=== PATIENT | female | born 1935 | race Caucasian/White ===

== ENCOUNTER → 2023-08-03 | Outpatient (CLI) | payer MEDICARE, BC, SELFPAY ==
[2023-08-03 11:42] LABS: BNP,B-Type NATRIURETIC PEPTIDE 866.3 pg/mL (0-100)
[2023-08-03 11:48] LABS: Anion Gap 4 (5-15); BUN 28 mg/dL (7-18); BUN/Creat Ratio 26.7 RATIO (10-20); Calcium,Total 9.4 mg/dL (8.5-10.1); Chloride 100 mmol/L (98-107); Creatinine, Serum 1.05 mg/dL (0.55-1.02); EST Glomerular Filtration Rate 53 mL/min (>60); Est Glom Filt Rate - Afr Amer 64 mL/min (>60); Glucose 103 mg/dL (74-106); Potassium 3.8 mmol/L (3.5-5.1); Sodium Level 133 mmol/L (136-145)
== END | disposition home or self-care (01) ==
LOC: LAB 10:35
PROVIDERS: PCP Preventive Medicine Occupational Medicine; Referring Provider Internal Medicine Cardiovascular Disease; Visit Provider Internal Medicine Cardiovascular Disease
DX: R06.09 Other forms of dyspnea (principal); N18.30 Chronic kidney disease, stage 3 unspecified
CPT/HCPCS: 36415; 80048; 83880

== ENCOUNTER → 2023-08-17 | Outpatient (CLI) | payer MEDICARE, BC, SELFPAY ==
[2023-08-17 09:37] LABS: Anion Gap 5 (5-15); BUN 27 mg/dL (7-18); BUN/Creat Ratio 25.7 RATIO (10-20); Calcium,Total 9.2 mg/dL (8.5-10.1); Chloride 101 mmol/L (98-107); Creatinine, Serum 1.05 mg/dL (0.55-1.02); EST Glomerular Filtration Rate 53 mL/min (>60); Est Glom Filt Rate - Afr Amer 64 mL/min (>60); Glucose 102 mg/dL (74-106); Sodium Level 133 mmol/L (136-145)
== END | disposition home or self-care (01) ==
PROVIDERS: PCP Preventive Medicine Occupational Medicine; Referring Provider Internal Medicine Cardiovascular Disease; Visit Provider Internal Medicine Cardiovascular Disease
DX: I10 Essential (primary) hypertension (principal)
CPT/HCPCS: 36415; 80048

== ENCOUNTER → 2023-10-28 | Outpatient (CLI) | payer MEDICARE, BC, SELFPAY ==
[2023-10-28 09:37] LABS: Absolute Lymphocyte Count 1.13 X10^3/uL (0.83-4.51); Absolute Neutrophil Count 5.5 X10^3/uL (2.0-7.7); Basophil# 0.06 X10^3/uL; Basophil% 0.8 % (0-1); Eosinophil# 0.23 X10^3/uL; Eosinophils% 2.9 % (0-5); Hematocrit 35.5 % (37-47); Hemoglobin 11.6 g/dL (12.0-15.0); Lymphocyte # 1.13 X10^3/ul (0.83-4.51); Lymphocyte % 14.4 % (19-41); Mean Corp Hgb Conc 32.7 g/dL (32-36); Mean Corpuscular Hgb 29.8 pg (27.0-32.0); Mean Corpuscular Volume 91.3 fL (81-99); Mean Platelet Vol. 10.7 fl (6.2-12.0); Monocyte# 0.92 X10^3/uL; Monocyte% 11.7 % (0-10); NRBC Flagged by Analyzer 0 % (0-5); Neutrophil # 5.46 X10^3/uL (2.7-7.7); Neutrophil % 69.8 % (47-70); Platelet Count 219 K/mm3 (150-450); RBC Distribution Width SD 50.3 fl (35.1-43.9); Red Blood Count 3.89 M/mm3 (4.2-5.4); White Blood Count 7.8 K/mm3 (4.4-11.0)
[2023-10-28 10:14] LABS: AST(SGOT) 32 U/L (15-37); Alanine Aminotransfer ALT/SGPT 28 U/L (13-56); Anion Gap 5 (5-15); BUN 35 mg/dL (7-18); BUN/Creat Ratio 28.5 RATIO (10-20); Calcium,Total 9.3 mg/dL (8.5-10.1); Chloride 100 mmol/L (98-107); Cholesterol 75 mg/dL (200); Creatinine, Serum 1.23 mg/dL (0.55-1.02); EST Glomerular Filtration Rate 44 mL/min (>60); Est Glom Filt Rate - Afr Amer 53 mL/min (>60); Glucose 93 mg/dL (74-106); High Density Lipoprotein 45 mg/dL; Potassium 4.3 mmol/L (3.5-5.1); Sodium Level 133 mmol/L (136-145); Triglycerides 55 mg/dL; Very Low Density Lipoprotein 11 mg/dL (5-40)
[2023-10-28 11:01] LABS: Hepatitis B Surface Antibody Non-Reactive; Hepatitis B Surface Antigen Non-Reactive (Nonreactive); Hepatitis C Antibody Non-Reactive (Nonreactive)
[2023-10-30 21:07] LABS: Hepatitis B Core Ab Total Negative (Negative); LDL, Direct 120295 33 mg/dL (0-99); PROEL- A/G Ratio 1.1 (0.7-1.7); PROEL- Albumin 3.5 g/dL (2.9-4.4); PROEL- Alpha-1 Globulin 0.3 g/dL (0.0-0.4); PROEL- Alpha-2 Globulin 0.6 g/dL (0.4-1.0); PROEL- Gamma Globulin 1.5 g/dL (0.4-1.8); PROEL- Globulin, Total 3.3 g/dL (2.2-3.9); PROEL- TOTAL PROTEIN 6.8 g/dL (6.0-8.5); PROEL-M-Spike Not Observed g/dL (Not Observed); QNTFERON TB Mitogen Value > 10.00 IU/mL (.); QNTFERON TB Nil Value 0.05 IU/mL (.); QNTFERON TB1+ Ag Value 0.07 IU/mL (.); QNTFERON TB2+ Ag Value 0.13 IU/mL (.); QNTIFERON TB Positive Criteria Negative (Negative)
== END | disposition home or self-care (01) ==
LOC: LAB 08:18
PROVIDERS: PCP Preventive Medicine Occupational Medicine; Referring Provider Physician Assistant; Visit Provider Physician Assistant
DX: L29.8 Other pruritus (principal); E05.00 Thyrotoxicosis with diffuse goiter without thyrotoxic crisis or storm; E78.00 Pure hypercholesterolemia, unspecified; I10 Essential (primary) hypertension; Z13.0 Encounter for screening for diseases of the blood and blood-forming organs and certain disorders involving the immune mechanism; L20.89 Other atopic dermatitis; Z79.620 Long term (current) use of immunosuppressive biologic; Z79.899 Other long term (current) drug therapy
CPT/HCPCS: 36415; 80048; 80061; 83721; 84165; 84450; 84460; 85025; 86480; 86704; 86706; 86803; 87340

== ENCOUNTER → 2023-11-17 | Outpatient (CLI) | payer MEDICARE, BC, SELFPAY ==
[2023-11-17 09:26] LABS: Anion Gap 4 (5-15); BUN 25 mg/dL (7-18); BUN/Creat Ratio 23.1 RATIO (10-20); Calcium,Total 9.5 mg/dL (8.5-10.1); Chloride 101 mmol/L (98-107); Creatinine, Serum 1.08 mg/dL (0.55-1.02); EST Glomerular Filtration Rate 51 mL/min (>60); Est Glom Filt Rate - Afr Amer 62 mL/min (>60); Glucose 92 mg/dL (74-106); Potassium 4.5 mmol/L (3.5-5.1); Sodium Level 132 mmol/L (136-145)
== END | disposition home or self-care (01) ==
LOC: LAB 08:17
PROVIDERS: PCP Preventive Medicine Occupational Medicine; Visit Provider Nurse Practitioner Gerontology
DX: N18.32 Chronic kidney disease, stage 3b (principal)
CPT/HCPCS: 36415; 80048

== ENCOUNTER → 2024-05-02 | Outpatient (CLI) | payer MEDICARE, BC, SELFPAY ==
[2024-05-02 11:23] LABS: AST(SGOT) 37 U/L (15-37); Alanine Aminotransfer ALT/SGPT 31 U/L (13-56); Albumin, Serum 3.4 g/dL (3.2-5.0); Alkaline Phosphatase 136 U/L (45-117); Bilirubin, Direct 0.23 mg/dL (0.00-0.30); Cholesterol 92 mg/dL (200); Globulin 3.6 g/dL (2.2-4.2); High Density Lipoprotein 50 mg/dL; Triglycerides 67 mg/dL; Very Low Density Lipoprotein 13 mg/dL (5-40)
== END | disposition home or self-care (01) ==
PROVIDERS: PCP Preventive Medicine Occupational Medicine; Referring Provider Physician Assistant Medical; Visit Provider Physician Assistant Medical
DX: E78.5 Hyperlipidemia, unspecified (principal)
CPT/HCPCS: 36415; 80061; 80076

== ENCOUNTER → 2024-09-06 | Outpatient (CLI) | payer MEDICARE, BC, SELFPAY ==
[2024-09-06 11:44] LABS: AST(SGOT) 33 U/L (<=31); Alanine Aminotransfer ALT/SGPT 16 U/L (<=34); Albumin, Serum 4.1 g/dL (3.4-4.8); Alkaline Phosphatase 60 U/L (35-104); Globulin 2.6 g/dL (2.2-4.2); Lipase 37 U/L (13-75); Protein, Total 6.7 g/dL (5.9-8.4); Total Bilirubin 0.78 mg/dL (0.00-1.30)
[2024-09-09 04:07] LABS: GGTP 14 IU/L (0-60)
== END | disposition home or self-care (01) ==
LOC: LAB 10:16
PROVIDERS: PCP Preventive Medicine Occupational Medicine; Referring Provider Nurse Practitioner Acute Care; Visit Provider Nurse Practitioner Acute Care
DX: R10.13 Epigastric pain (principal); R11.0 Nausea; I25.10 Atherosclerotic heart disease of native coronary artery without angina pectoris; R63.4 Abnormal weight loss; R74.8 Abnormal levels of other serum enzymes
CPT/HCPCS: 36415; 80076; 82977; 83690

== ENCOUNTER → 2024-09-20 | Outpatient (CLI) | payer MEDICARE, BC, SELFPAY ==
--- NOTE | 2024-09-20 08:07 | RAD_ITS ---
PROCEDURE: UPPER GI SINGLE CONTRAST 09/20/2024 REASON FOR EXAM: EPIGASTRIC PAIN, WEIGHT LOSS TECHNIQUE: Double contrast upper GI series. COMPARISON: None. FINDINGS: A small paraesophageal hiatal hernia is noted. A markedly tortuous esophagus is seen. No area of persistent narrowing is noted, and no esophageal mass is seen. During limited evaluation, gastroesophageal reflux was not seen. No additional abnormality of the stomach is seen. No duodenal pathology is noted. RAD/Upper GI Single Contrast IMPRESSION: 1. Small paraesophageal hiatal hernia. 2. Markedly tortuous esophagus. 3. No additional gastric abnormality is noted. Reading Location: [place] [address]
== END | disposition home or self-care (01) ==
LOC: RAD 08:07
PROVIDERS: PCP Student in an Organized Health Care Education/Training Program; Referring Provider Nurse Practitioner Acute Care; Visit Provider Nurse Practitioner Acute Care
DX: R10.13 Epigastric pain (principal); R11.0 Nausea; R63.4 Abnormal weight loss; I25.10 Atherosclerotic heart disease of native coronary artery without angina pectoris
CPT/HCPCS: 74240

== ENCOUNTER → 2024-10-02 | Outpatient (CLI) | payer MEDICARE, BC, SELFPAY | END | disposition home or self-care (01) | LOC: CT 14:18 | PROVIDERS: PCP Student in an Organized Health Care Education/Training Program; Referring Provider Nurse Practitioner Acute Care; Visit Provider Nurse Practitioner Acute Care | DX: R63.4 Abnormal weight loss (principal); K44.9 Diaphragmatic hernia without obstruction or gangrene | CPT/HCPCS: 71260; Q9967 ==

== ENCOUNTER 2024-10-06 10:58 | Day surgery (SDC) | payer MEDICARE, BC, SELFPAY ==
--- NOTE | 2024-10-05 10:57 | PAT.ANE_ITS ---
Pre-Assessment Diagnosis/Proposed Procedure Planned Operative Procedure(s): EGD Anesthesia History Anesthesia History - genetic counselor: Anesthesia History - genetic counselor Hx Hospitalization No 10/05/24 08:47 Any Problems With Anesthesia No 10/05/24 08:47 Cholinesterase deficiency No 10/05/24 08:47 You/Your Family Experience No 10/05/24 08:47 fever (hyperthermia) with Relationship Recent Exposure to Contagious Disease Does patient have nerve No 10/05/24 08:47 stimulator Patient instructed to have device shut off --Does patient have Pacemaker or ICD? When Was Last Pacemaker Check QUESTION #4 FULL TEXT: You/Your Family Experience fever (hyperthermia) with Anesthesia Last Oral Intake Last Oral intake: Last Oral Intake NPO since Meds taken in AM with sips of water? Meds patient instructed to take am of surgery PONV PONV - genetic counselor: PONV - genetic counselor Female Yes 10/05/24 08:47 HX of Motion Sickness No 10/05/24 08:47 HX of N/V After Surgery No 10/05/24 08:47 Non-Smoker Yes 10/05/24 08:47 Duration of Surgery greater No 10/05/24 08:47 than 60 minutes Number of Risk Factors 2 10/05/24 08:47 PONV Score Moderate Risk 10/05/24 08:47 Height & Weight Height & Weight: Anesthesia: Height & Weight Height 4 ft 10 in 09/27/24 08:44 Respiratory Assessment Respiratory Assessment - genetic counselor: Respiratory Tract Infection Hx - genetic counselor Hx Respiratory Tract Infection No 10/05/24 08:47 STOP Sleep Apnea STOP Sleep Apnea - genetic counselor: STOP Sleep Apnea - genetic counselor Hx Hypertension Yes: CONTROLLED WITH MED 10/05/24 08:47 Hx Sleep Apnea No 10/05/24 08:47 CPAP BIPAP Do you snore loudly (louder No 10/05/24 08:47 than talking or can be heard Do you often feel tired/ No 10/05/24 08:47 fatigued/ sleepy during daytime? Has anyone observed you stop No 10/05/24 08:47 breathing during sleep? STOP Results Negative 10/05/24 08:47 QUESTION #5 FULL TEXT : Do you snore loudly (louder than talking or can be heard through closed doors)? Tobacco Use History Tobacco Use History - genetic counselor: Tobacco Use History - genetic counselor Tobacco Use Smoking Status Never smoker 10/05/24 08:47 Hx Tobacco Use No 10/05/24 08:47 Years Smoking Packs Smoked per Day Smoking Cessation Date was within the last 15 years Hx Smoking Cessation Date Hx Smoking Cessation Counseling Hematologic Medial History Hematologic Hx - genetic counselor: Hematologic Medical Hx - bean roaster Hx of Blood Transfusion No 10/05/24 08:47 Hx of Transfusion in last 3 No 10/05/24 08:47 Months Date of Last Transfusion (if within last 3 months) Ever experience any problems No 10/05/24 08:47 with transfusion(s)? Specify any problems Hx of Preganancy in last 3 No 10/05/24 08:47 Months Nurse Filling Out Transfusion DSCHRIBER 10/05/24 08:47 & Questions: Date: 10/05/24 10/05/24 08:47 Time: 08:49 10/05/24 08:47 Patient unable to answer at this time (ie. confused, unrespo /Reproduction History /Reproductive History - genetic counselor: /Reproductive Hx- genetic counselor Hx Now No 10/05/24 08:47 Gestational Age (in weeks): EDC: Hx Hx Para Hx Section SAB No 10/05/24 08:47 PFSH Medical History (Updated 10/05/24 @ 09:02 by Sharon Post) Loss of hearing Wears glasses Wears dentures Post-menopausal Skin tear Thyroid disease Arthritis Ambulates with cane Bladder disease High cholesterol Easy bruising Fall Back pain Syncope History of hiatal hernia Gastric reflux Abdominal pain Non-smoker Shortness of breath on exertion Leg cramps History of pain when walking Hypertension History of echocardiogram Cardiology follow-up encounter History of irregular heartbeat History of trigger finger Dyspnea on exertion History of transcatheter aortic valve replacement (TAVR) Left bundle branch block Hypothyroidism Dyslipidemia Chronic diastolic heart failure with preserved ejection fraction Coronary artery disease Home Medications ?Medication ?Instructions ?Recorded ?Last Taken ?Type aspirin 81 mg tablet,delayed 81 mg PO DAILY 07/27/23 U nknown History release calcium 600 mg (as 1 cap PO DAILY 07/27/23 Unkn own History carbonate)-vitamin D3 12.5 mcg (500 unit) capsule (Calcium with Vit D3) levothyroxine 25 mcg tablet 25 mcg PO .MWF 07/27/23 Un known History nitroglycerin 0.4 mg sublingual 0.4 mg sublingual Q5-1 5M PRN chest 07/27/23 Unknown History tablet pain vitamins A,C,M-ckkt-wpoomy 4,296 1 cap PO BID 07/27/23 Unknown History mcg-226 mg-90 mg capsule (PreserVision AREDS) atenolol 25 mg tablet 25 mg PO DAILY #90 tabs 07/21 Unknown Rx atorvastatin 40 mg tablet 40 mg PO DAILY #90 tabs 07/21 Unknown Rx spironolactone 25 mg tablet 25 mg PO DAILY #90 tabs Unknown Rx pantoprazole 40 mg tablet,delayed 40 mg PO QDAY Unknown History release hyoscyamine sulfate 0.125 mg 0.125 mg PO Q6 PRN dyspep graciela 09/06/24 Unknown History disintegrating tablet Allergy/AdvReac Type Severity Reaction Status Date / Time famotidine Allergy Shortness Verified 10/05/24 08:43 of breath Sulfa (Sulfonamide Allergy Other Verified 10/05/24 08:43 Antibiotics) Family History Grandfather Heart disease Mother Colon cancer Surgical History (Updated 10/05/24 @ 09:02 by Sharon Post) Hx of colonoscopy Hx of foot surgery Hx of inguinal hernia surgery History of bilateral cataract extraction History of cardiac catheterization Social History Smoking Status: Never smoker alcohol intake: never substance use type: does not use caffeine: Yes Audit: Pertinent Findings Pertinent Findings EKG Perinent findings: August 03, 2023. Sinus rhythm. Left bundle branch block. Left atrial enlargement. Echo (EF%) pertinent findings: June 29, 2023. EF of 50%. RVSP is 41 mmHg. TAVR had mild perivalvular regurgitation. Heart catheterization pertinent findings: 01/13/2022. 78% proximal LAD. 100% occluded RCA which fills via rxyi-nw-wxohf collaterals. Consult pertinent findings: May 02, 2024. Adeola JOHNSON. 1. TAVR?acute-procedure was done 01/13/2022. Evaluated with last echo June 29, 2023. Mild perivalvular regurgitation. Patient will require antibiotic prophylaxis with procedures. 2. Left bundle branch block-chronic- 3. Hypertension?controlled. 4. Chronic kidney disease?stage III-stable with creatinine clearance of 51. 5. Coronary artery disease?acute-known coronary artery disease at the time of her TAVR. 78% proximal LAD. 100% occluded right coronary artery which fills via olym-rc-oblow collaterals. No symptoms of angina. Continue atenolol, atorvastatin and aspirin. Recommendation Anesthesia Recommendation Anesthesia recommendation: OPTIMIZED for anesthesia
[2024-10-06] VITALS (7 sets, daily range): BP systolic 93–168; BP diastolic 40–52; PULSE 57–62; RESP 16; TEMP 36.7–36.9; O2SAT 96–100; BMI 19.4
--- NOTE | 2024-10-06 11:19 | PRE.ANES_ITS ---
ASA Classification* ASA Classification ASA Classification: 3 Assessment & Plan Anesthesia* Anesthesia Assessment Anesthesia Assessment: Discussed sedation and/or anesthesia options, risks, benefits, and alternatives with patient/parents/legal guardian/POA. Questions invited. The patient/parents/legal guardian/POA seems to understand and agrees to proceed with anesthesia plan. Reviewed the physical assessment, medical history, allergy history and patient home medications list prior to surgery/procedure/anesthetic and documented any changes. Performed airway and anesthesia risk assessments. Anesthesia Type Anesthesia Type: MAC Anesthesia Focused Assessment* Airway Assessment Mouth opens: >3 cm Mallampati Score: II Labs Anesthesia Preop lab: CBC WBC 7.8 K/mm3 (4.4-11.0) 10/28/23 08:10/28/23 RBC 3.89 M/mm3 (4.2-5.4) L 10/28/23 08:10/28/23 Hgb 11.6 g/dL (12.0-15.0) L 10/28/23 08: 4 Hct 35.5 % (37-47) L 10/28/23 08:27 10/28/23 Plt Count 219 K/mm3 (150-450) 10/28/23 08:27 10/28/23 CHEMISTRY Potassium 4.5 mmol/L (3.5-5.1) 11/17/23 08:27 11/17/23 Sodium 132 mmol/L (136-145) L 11/17/23 08:27 11/17/23 BUN 25 mg/dL (7-18) H 11/17/23 08:27 11/17/23 Creatinine 1.08 mg/dL (0.55-1.02) H 11/17/23 08:27 Glucose 92 mg/dL (74-106) 11/17/23 08:27 11/17/23 COAG Pre-Assessment Diagnosis/Proposed Procedure Planned Operative Procedure(s): EGD Anesthesia History 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 When Was Last Pacemaker Check QUESTION #4 FULL TEXT: You/Your Family Experience fever (hyperthermia) with Anesthesia Last Oral Intake Last Oral intake: Last Oral Intake NPO since Meds taken in AM with sips of water? 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 Has anyone observed you stop No 10/05/24 08:47 breathing during sleep? STOP Results Negative 10/05/24 08:47 QUESTION #5 FULL TEXT : Do you snore loudly (louder than talking or can be heard through closed doors)? 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 Specify any problems Hx of Preganancy in last 3 No 10/05/24 08:47 Months Nurse Filling Out Transfusion DSCHRIBER 10/05/24 08:47 & Questions: Date: 10/05/24 10/05/24 08:47 Time: 08:49 10/05/24 08:47 Patient unable to answer at this time (ie. 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 Hx Now No 10/05/24 08:47 Gestational Age (in weeks): EDC: Hx Hx Para Hx Section SAB No 10/05/24 08:47 Active Medications Active Medications: Current Medications Generic Name Dose Route Start Last Admin Trade Name Freq PRN Reason Stop Dose Admin Lactated Ringer's 1,000 mls @ 15 mls/hr 10/06/24 11:15 IV .Q48H BHAVESH PFSH Medical History Loss of hearing Wears glasses Wears dentures Post-menopausal Skin tear Thyroid disease Arthritis Ambulates with cane Bladder disease High cholesterol Easy bruising Fall Back pain Syncope History of hiatal hernia Gastric reflux Abdominal pain Non-smoker Shortness of breath on exertion Leg cramps History of pain when walking Hypertension History of echocardiogram Cardiology follow-up encounter History of irregular heartbeat History of trigger finger Dyspnea on exertion History of transcatheter aortic valve replacement (TAVR) Left bundle branch block Hypothyroidism Dyslipidemia Chronic diastolic heart failure with preserved ejection fraction Coronary artery disease Home Medications ?Medication ?Instructions ?Recorded ?Last Taken ?Type aspirin 81 mg tablet,delayed 81 mg PO DAILY 07/27/23 U nknown History release calcium 600 mg (as 1 cap PO DAILY 07/27/23 Unkn own History carbonate)-vitamin D3 12.5 mcg (500 unit) capsule (Calcium with Vit D3) levothyroxine 25 mcg tablet 25 mcg PO .MWF 07/27/23 Un known History nitroglycerin 0.4 mg sublingual 0.4 mg sublingual Q5-1 5M PRN chest 07/27/23 Unknown History tablet pain vitamins A,C,B-fqbo-nqswzm 4,296 1 cap PO BID 07/27/23 Unknown History mcg-226 mg-90 mg capsule (PreserVision AREDS) atenolol 25 mg tablet 25 mg PO DAILY #90 tabs 07/21 Unknown Rx atorvastatin 40 mg tablet 40 mg PO DAILY #90 tabs 07/21 Unknown Rx spironolactone 25 mg tablet 25 mg PO DAILY #90 tabs Unknown Rx pantoprazole 40 mg tablet,delayed 40 mg PO QDAY Unknown History release hyoscyamine sulfate 0.125 mg 0.125 mg PO Q6 PRN dyspep graciela 09/06/24 Unknown History disintegrating tablet Allergy/AdvReac Type Severity Reaction Status Date / Time famotidine Allergy Shortness Verified 10/05/24 08:43 of breath Sulfa (Sulfonamide Allergy Other Verified 10/05/24 08:43 Antibiotics) Family History Grandfather Heart disease Mother Colon cancer Surgical History Hx of colonoscopy Hx of foot surgery Hx of inguinal hernia surgery History of bilateral cataract extraction History of cardiac catheterization Social History Smoking Status: Never smoker alcohol intake: never substance use type: does not use caffeine: Yes Review of Systems (Anesthesia) ROS Narrative System reviewed and no additional complaints, except as documented.
[2024-10-06] MEDS: Lactated Ringers 1,000 ML 15 ML IV (11:51)
--- NOTE | 2024-10-06 11:56 | HP.PCM_ITS ---
HPI - General General Date of Admission: 10/06/24 Date of Service: 10/06/24 HPI Narrative TRENTON FLORENCE, is a 89 F who presents of Chief Complaint: abdominal pain OV 09/06/2024 This is an 89-year-old woman with multiple comorbidities and a year of chronic, now constant, epigastric pain with associated nausea and significant weight loss, refractory to acid suppression and antispasmodics, with unremarkable recent abdominal imaging, negative H. pylori and celiac serologies, and no evidence of GI bleeding or obstructive symptoms. The differential remains broad, but given her age and alarm features (notably, >40 lbs weight loss), malignancy (gastric or pancreatic), chronic mesenteric ischemia, and less likely, gastroparesis or functional dyspepsia, must be considered. She is scheduled for an upper GI series and CT angiography to evaluate for structural lesions, malignancy, and vascular insufficiency, and will complete a hepatic panel, GGT, and lipase to assess for hepatobiliary and pancreatic etiologies. If these studies are unrevealing, consideration should be given to gastric emptying studies for gastroparesis. Management will be guided by diagnostic findings, with possible endoscopic evaluation. Close follow-up is planned in three weeks to review results and reassess the diagnostic and therapeutic approach. Note: [employer] speech recognition body mechanic apprentice software was used to create portions of this document. Sound-alike and misspelled words, as well as other body mechanic apprentice errors may be contained in the documentation. Patient Instructions: Complete labs today (Hepatic panel, GGT, Lipase) Call [phone] to schedule UGI and CTA Continue pantoprazole 40mg once daily Continue hyoscyamine PRN Follow-up in 3 weeks Will forward a copy of today's note to daughter per patient request(record release signed) LP: 09/06/2024 AST 33 (down from 37), ALP now normal Lipase: 09/06/2024 normal GGT: 09/06/2024 normal UGI: 09/20/2024 small paraesophageal HH, marked tortuous esophagus CTA: scheduled for 10/02/2024 - Labs: Liver enzymes, lipase, and GGT normalized. - Imaging: Upper GI study on September 20 showed a small paraesophageal hiatal hernia and tortuous esophagus. - Imaging: CT abdomen and pelvis in April 2023 showed no acute findings. - Imaging: Abdominal ultrasound in September 2023 was unremarkable. - Imaging: CT angiography of the chest in May 2023 noted a small hiatal hernia. - she is eating - weight is down another 11lbs in the past 3 weeks - nausea - occasional pain with eating - SpO2 89-92% on RA - c/o exertional dyspnea and conversational dyspnea - denies any dysphagia to food or liquids - reports her bowel habits are normal without constipation, diarrhea or bleeding - reports she is not eating less - still drives - lives alone - does her own grocery shopping - performs ADLs The patient is an 89-year-old female presenting with chronic epigastric pain. The pain is constant, associated with nausea, and has led to a significant weight loss of 45 pounds recently. She denies vomiting but experiences occasional pain with eating, localized in the epigastric region. UGI on 09/20/2024 was revealing for paraesophageal and a tortuous esophagus. She was previously aware of a hiatal hernia but not specifically a paraesophageal. She reports shortness of breath, exacerbated by hot, humid weather, persisting for at least six months. Additionally, she has difficulty swallowing pills, particularly calcium, needing food to assist in swallowing. Previous diagnostic evaluations include a CT abdomen and pelvis in April 2023, showing no acute findings, and an abdominal ultrasound in September 2023, which was unremarkable. A CT angiography of the chest in May 2023 noted a small hiatal hernia. Attestation: Documentation on this patient encounter was supported using ambient scribe technology/ voice AI technology. The patient consented to recording for the purpose of documenting the encounter. Provider reviewed content of the generated note prior to signature. ROS Const Constitutional: No fatigue, fever(s) or weight change ENT ENT: No difficulty swallowing Gastro GI: Positive for abdominal pain; No belching, bloating, change in bowel habits, change in stool character, coffee ground emesis, constipation, cramping, diarrhea, heartburn, difficulty swallow ing, feeling full early, excessive flatus, incontinent of stools, Vomiting blood/hematemesis, Blood in stool, loose stools, Black,tarry stools, nausea/dyspepsia, pain with swallowing, vomiting or other Musc Musculoskeletal: No joint pain Skin Skin: No yellowing of the eye or itchy eyes Psych Psychiatric: No anxiety and No depression Endo Endocrine: No fatigue or weight change Aller/Imm Allergy/Immunologic: No itchy eyes Florentin/Lymp Hematologic/Lymphatic: No easy bleeding or easy bruising ROS Narrative - Gastrointestinal: Reports chronic epigastric pain, nausea, and significant weight loss. Denies vomiting, diarrhea, constipation, and blood in stools. - Respiratory: Reports shortness of breath exacerbated by hot, humid weather. Denies cough, hemoptysis, or wheezing. - Musculoskeletal: Denies pain on palpation of the abdomen. - Neurological: Denies difficulty swallowing food but reports difficulty swallowing pills, particularly calcium. 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, ambulates with a cane and presents today in [facility] Head: normocephalic Ears: hearing grossly normal bilaterally Mouth: moist mucous membranes Eyes Conjunctivae: conjunctivae normal Sclera: sclerae normal Neck Neck: normal visual inspection and trachea midline Resp Effort & Inspection: normal respiratory effort, able to speak in complete sentences and symmetric chest movement GI Inspection: normal to inspection Auscultation: normal bowel sounds Percussion: normal to percussion Palpation: soft Rectal Exam: deferred Other: mild epigastric tenderness with palpation Neuro General: patient alert and patient oriented x3 Cranial Nerves: other (CN's grossly intact, non-focal exam) Cognition: normal cognition Speech: speech normal Psych Appearance: grossly normal and well kempt Affect: normal affect Attitude: cooperative Thought Process: normal Assessment and Plan Assessment and Plan (1) Epigastric abdominal pain: Status: Acute Plan: The plan includes scheduling an upper endoscopy to further evaluate the esophagus and stomach for potential lesions or abnormalities contributing to the patient's symptoms. Approval from cardiology is required due to the patient's history of TAVR and a previous echocardiogram showing a 50% ejection fraction. (2) Nausea: Status: Acute (3) Weight loss: Status: Acute (4) Paraesophageal hernia: Status: Acute Plan: The paraesophageal hiatal hernia will be further evaluated through the planned upper endoscopy to assess its role in the patient's weight loss and symptoms. CT of the chest to rule out other potential causes of weight loss and to provide a comprehensive assessment of the hernia's impact, will cancel previously ordered CTA to r/o mesenteric ischemia. The difficulty swallowing pills, particularly calcium, will be addressed by ensuring the patient takes medication with food and water to aid in swallowing. Orders: Orders Chest W/WO Contrast Today K44.9 - Diaphragmatic hernia without obstruction or gangrene, R10.13 - Epigastric pain, R11.0 - Nausea, R63.4 - Abnormal weight loss Plan The patient is an 89-year-old female with a history of paraesophageal hiatal hernia presenting with chronic epigastric pain, nausea, and significant weight loss. The pain is constant and occasionally worsens with oral intake, though the patient denies vomiting. The recent upper GI study confirmed a paraesophageal hiatal hernia and tortuous esophagus, raising concerns about potential complications contributing to her symptoms. The patient also reports shortness of breath, which she attributes to hot, humid weather, and has been experiencing this for at least six months. Her pulse oximetry is at 92%, and she has a history of valve replacement, which may contribute to her respiratory symptoms. Additionally, the patient has difficulty swallowing pills, particularly calcium, requiring food to aid in swallowing. This symptom may be related to her esophageal condition, as noted in the recent imaging studies. Patient Instructions: - Schedule EGD - Ensure you have a solid waste truck driver to take you home after the procedure. - Take your medications with food and water to help with swallowing. - Monitor your symptoms, especially shortness of breath, and report any worsening to your healthcare provider. [facility] Medical History Loss of hearing Wears glasses Wears dentures Post-menopausal Skin tear Thyroid disease Arthritis Ambulates with cane Bladder disease High cholesterol Easy bruising Fall Back pain Syncope History of hiatal hernia Gastric reflux Abdominal pain Non-smoker Shortness of breath on exertion Leg cramps History of pain when walking Hypertension History of echocardiogram Cardiology follow-up encounter History of irregular heartbeat History of trigger finger Dyspnea on exertion History of transcatheter aortic valve replacement (TAVR) Left bundle branch block Hypothyroidism Dyslipidemia Chronic diastolic heart failure with preserved ejection fraction Coronary artery disease Home Medications ?Medication ?Instructions ?Recorded ?Last Taken ?Type aspirin 81 mg tablet,delayed 81 mg PO DAILY 07/27/23 0 10/05/24 History release calcium 600 mg (as 1 cap PO DAILY 07/27/2309/26 History carbonate)-vitamin D3 12.5 mcg (500 unit) capsule (Calcium with Vit D3) levothyroxine 25 mcg tablet 25 mcg PO .MWF 07/27/23 History nitroglycerin 0.4 mg sublingual 0.4 mg sublingual Q5-1 5M PRN chest 07/27/23 Unknown History tablet pain vitamins A,C,H-dlke-zymjqi 4,296 1 cap PO BID 07/27/23 10/05/24 History mcg-226 mg-90 mg capsule (PreserVision AREDS) atenolol 25 mg tablet 25 mg PO DAILY #90 tabs 02/0 07/2110/05/24 Rx atorvastatin 40 mg tablet 40 mg PO DAILY #90 tabs 02/0 07/2110/05/24 Rx spironolactone 25 mg tablet 25 mg PO DAILY #90 tabs 10/05/24 Rx pantoprazole 40 mg tablet,delayed 40 mg PO QDAY 10/06/24 History release hyoscyamine sulfate 0.125 mg 0.125 mg PO Q6 PRN dyspep graciela 09/06/24 10/05/24 History disintegrating tablet Allergy/AdvReac Type Severity Reaction Status Date / Time famotidine Allergy Shortness Verified 10/06/24 11:45 of breath Sulfa (Sulfonamide Allergy Other Verified 10/06/24 11:45 Antibiotics) Family History Grandfather Heart disease Mother Colon cancer Surgical History Hx of colonoscopy Hx of foot surgery Hx of inguinal hernia surgery History of bilateral cataract extraction History of cardiac catheterization Social History Smoking Status: Never smoker alcohol intake: never substance use type: does not use caffeine: Yes ROS Constitutional Constitutional: Denies fatigue, fever(s), poor appetite, weight gain or weight loss Gastrointestinal Gastrointestinal: Denies belching, bloating, change in bowel habits, change in stool character, chewing difficulty, coffee ground emesis, constipation, cramping, diarrhea, dyspepsia, dysphagia, early satiety, excessive flatus, fecal incontinence, heartburn, hematemesis, hematochezia, hemorrhoids, loose stools, melena, nausea, odynophagia, rectal bleeding, tenesmus, vomiting or weight changes Vital Signs Vital Signs Vital Signs: 10/06/24 11:46 10/06/24 11:46 Temperature 98.5 F Temperature Source Temporal Pulse Rate 58 L Respiratory Rate 16 Respiratory Pattern Normal Blood Pressure 168/52 H Blood Pressure Mean 90 Blood Pressure Source Monitor Blood Pressure Position Semi-Fowlers Blood Pressure Location Right Arm Pulse Ox 96 Oxygen Delivery Method Room Air Weight Weight: 93 lb Body Mass Index (BMI) 19.4 Physical Exam Const alert, oriented x3, no apparent distress and healthy appearing General Appearance: cooperative GI normal to inspection, nondistended, normoactive bowel sounds, soft to palpation, non-tender and non-distended Percussion: normal to percussion Rectal Exam: deferred Assessment & Plan Assessment/Plan (1) Weight loss: (2) Nausea: (3) Epigastric abdominal pain: PLAN: Assessment and Plan Assessment and Plan (1) Epigastric abdominal pain: Status: Acute Plan: The plan includes scheduling an upper endoscopy to further evaluate the esophagus and stomach for potential lesions or abnormalities contributing to the patient's symptoms. Approval from cardiology is required due to the patient's history of TAVR and a previous echocardiogram showing a 50% ejection fraction. (2) Nausea: Status: Acute (3) Weight loss: Status: Acute (4) Paraesophageal hernia: Status: Acute Plan: The paraesophageal hiatal hernia will be further evaluated through the planned upper endoscopy to assess its role in the patient's weight loss and symptoms. CT of the chest to rule out other potential causes of weight loss and to provide a comprehensive assessment of the hernia's impact, will cancel previously ordered CTA to r/o mesenteric ischemia. The difficulty swallowing pills, particularly calcium, will be addressed by ensuring the patient takes medication with food and water to aid in swallowing. Orders: Orders Chest W/WO Contrast Today K44.9 - Diaphragmatic hernia without obstruction or gangrene, R10.13 - Epigastric pain, R11.0 - Nausea, R63.4 - Abnormal weight loss Plan The patient is an 89-year-old female with a history of paraesophageal hiatal hernia presenting with chronic epigastric pain, nausea, and significant weight loss. The pain is constant and occasionally worsens with oral intake, though the patient denies vomiting. The recent upper GI study confirmed a paraesophageal hiatal hernia and tortuous esophagus, raising concerns about potential complications contributing to her symptoms. The patient also reports shortness of breath, which she attributes to hot, humid weather, and has been experiencing this for at least six months. Her pulse oximetry is at 92%, and she has a history of valve replacement, which may contribute to her respiratory symptoms. Additionally, the patient has difficulty swallowing pills, particularly calcium, requiring food to aid in swallowing. This symptom may be related to her esophageal condition, as noted in the recent imaging studies. Patient Instructions: - Schedule EGD - Ensure you have a solid waste truck driver to take you home after the procedure. - Take your medications with food and water to help with swallowing. - Monitor your symptoms, especially shortness of breath, and report any worsening to your healthcare provider.
--- NOTE | 2024-10-06 12:30 | EGD_PTH ---
PATIENT: TRENTON FLORENCE LOC: [facility] U#:[id number] AGE/SX: 89/F ROOM: RE10/06/[address]: Dr. Dean Mcgarry DO : 1935 BED: DIS: 10/06/2024 SPEC #: [id number] RECD: 10/06/24 15:09 STATUS: LILLIAN MYLES #: [id number] SHINE: 10/06/24 12:[address]: Dean Mcgarry DEPT: SURGICAL PATHOLOGY RECD BY: Rubin Brower ENTERED: 10/06/24 16:02 SP TYPE: EGD BIOPSY CLARE DR: Dr. Mariela Yeboah, Tissues: A - Gastric mucous membrane Procedures: Immunohistochemical Stains Surgery Specimen Level IV HEADER OPERATION: EGD, biopsy PRE-OP DIAGNOSIS: Epigastric abdominal pain, nausea, weight loss, paraoesophageal hernia TISSUE SUBMITTED: A- Gastric cardia biopsy MICROSCOPIC DIAGNOSIS A. Gastric cardia, colon, biopsy: * Erosive gastropathy. * Immunohistochemistry for H. pylori is negative. * Negative for intestinal metaplasia, dysplasia or malignancy. MICROSCOPIC DESCRIPTION Slides are reviewed. GROSS DESCRIPTION A. Received in fixative is one container labeled with the patient's name and designated Gastric cardia biopsy. The specimen consists of two irregular fragments of light cantu soft tissue that in aggregate measure 0.3 and 0.5 cm. The specimen is totally submitted in one cassette. NIKITA/ 10/06/2024 CPT:58151 ,[id number]
--- NOTE | 2024-10-06 13:25 | OP.CCLET_ITS ---
10/06/2024 Mariela Yeboah Do Re : Upper GI endoscopy procedure for Nikki Ray Dear Dr. Yeboah This procedure was performed on Sunday, October 06, 2024. My impressions and recommendations are as follows: Impressions : - Normal esophagus. - Large hiatal hernia. - Chronic gastritis. Biopsied. - No gross lesions in the entire examined duodenum. Recommendations : - Discharge patient to home. - Resume previous diet. - Continue present medications. My findings are described in the full procedure note, which is enclosed. If I can be of further assistance, please feel free to contact me at . Sincerely, Dean Mcgarry, 10/06/2024 1:25:17 PM This report has been signed electronically.
--- NOTE | 2024-10-06 13:25 | OP.EGD_ITS ---
Patient Name: Nikki Finn Procedure Date: 10/06/2024 1:02 PM Date of : 1935 Age: 89 Procedure: Upper GI endoscopy Indications: Epigastric abdominal pain, Dyspepsia, Indigestion Providers: Dean Mcgarry DO Referring MD: Mariela Yeboah Do Medicines: Monitored Anesthesia Care Patient Profile: This is an 89 year old female. Refer to note in patient chart for documentation of history and physical. Patient has symptoms of acute epigastric abdominal pain. Complications: No immediate complications. Procedure: Pre-Anesthesia Assessment: - Prior to the procedure, a History and Physical was performed, and patient medications and allergies were reviewed. The patient is competent. The risks and benefits of the procedure and the sedation options and risks were discussed with the patient. All questions were answered and informed consent was obtained. Patient identification and proposed procedure were verified by the physician in the pre-procedure area. Mental Status Examination: alert and oriented. Airway Examination: normal oropharyngeal airway and neck mobility. Respiratory Examination: clear to auscultation. CV Examination: normal. Prophylactic Antibiotics: The patient does not require prophylactic antibiotics. Prior Anticoagulants: The patient has taken no anticoagulant or antiplatelet agents except for NSAID medication. ASA Grade Assessment: II - A patient with mild systemic disease. After reviewing the risks and benefits, the patient was deemed in satisfactory condition to undergo the procedure. The anesthesia plan was to use monitored anesthesia care (MAC). Immediately prior to administration of medications, the patient was re-assessed for adequacy to receive sedatives. The heart rate, respiratory rate, oxygen saturations, blood pressure, adequacy of pulmonary ventilation, and response to care were monitored throughout the procedure. The physical status of the patient was re-assessed after the procedure. After obtaining informed consent, the endoscope was passed under direct vision. Throughout the procedure, the patient's blood pressure, pulse, and oxygen saturations were monitored continuously. The gastroscope was introduced through the mouth, and advanced to the fourth part of the duodenum. Small bowel enteroscopy was deemed necessary. The upper GI endoscopy was accomplished without difficulty. The patient tolerated the procedure well. Scope In: 1:16:26 PM Scope Out: 1:19:49 PM Total Procedure Duration Time 0 hours 3 minutes 23 seconds Findings: The examined esophagus was normal. A large hiatal hernia was present. Segmental moderate inflammation characterized by erosions, erythema and friability was found in the cardia. Biopsies were taken with a cold forceps for histology. Verification of patient identification for the specimen was done. Estimated blood loss was minimal. Biopsies were taken with a cold forceps for Helicobacter pylori testing. Verification of patient identification for the specimen was done. Estimated blood loss was minimal. No gross lesions were noted in the entire examined duodenum. Impression: - Normal esophagus. - Large hiatal hernia. - Chronic gastritis. Biopsied. - No gross lesions in the entire examined duodenum. Recommendation: - Discharge patient to home. - Resume previous diet. - Continue present medications. Procedure Code(s): --- Professional --- 37275, Small intestinal endoscopy, enteroscopy beyond second portion of duodenum, not including ileum; with biopsy, single or multiple CPT copyright 2021 [employer] [place] [employer] [employer]. All rights reserved. The codes documented in this report are preliminary and upon remote coders review may be revised to meet current compliance requirements. Dean Mcgarry DO 10/06/2024 1:25:17 PM This report has been signed electronically. Number of Addenda: 0 Note Initiated On: 10/06/2024 1:02 PM
--- NOTE | 2024-10-06 13:29 | PCM.POST.ANE ---
Anesthesia: Postop Eval I Current Vital Signs Temperature: 98.1 F Pulse Rate: 62 Blood Pressure: 107/45 Respiratory Rate: 16 Pulse Ox: 99 Oxygen Delivery Method: Room Air Assessment Airway patent: Yes Spontaneous unlabored respirations: Yes Mental status: Asleep nausea: No Vomiting: No Anesthesia Complication: No Fluid Hydration Crystalloid volume administer (ml): 300 Total IV fluid infused: 300 Progress Note Anesthesia document: Postop Eval 1 completed: No
--- NOTE | 2024-10-06 13:40 | PCM.POSTANE2 ---
Anesthesia Postop Eval I Sum Postop Eval Completion status Anesthesia document: Postop Eval 1 completed: No Anesthesia Postop Eval I Summary Anesthesia Postop Eval I Summary: Anesthesia Postop Eval I: Assessment Summary Airway patent Yes 10/06/24 13:30 [email or web address] Spontaneous unlabored Yes 10/06/24 13:30 [email or web address] respirations Mental status Asleep 10/06/24 13:30 [email or web address] nausea No 10/06/24 13:30 [email or web address] Vomiting No 10/06/24 13:30 [email or web address] Anesthesia Postop Eval I: Fluid Summary Crystalloid volume administer 300 10/06/24 13:30 [email or web address] (ml) Colloids volume administered ( ml) Blood Product volume administered (ml) Total IV fluid infused 300 10/06/24 13:30 [email or web address] Anesthesia Postop Eval I: Summary Notes Anesthesia Complication No 10/06/24 13:30 [email or web address] Anesthesia Complication Comment: Post-operative progress note Anesthesia: Postop Eval II Evaluation Mental status: Awake Pain Level: 0 nausea: No Vomiting: No
== END 2024-10-06 14:40 | disposition home or self-care (01) ==
LOC: EN 10:59 → AC 11:01
PROVIDERS: PCP Student in an Organized Health Care Education/Training Program; Referring Provider Student in an Organized Health Care Education/Training Program; Visit Provider Internal Medicine Gastroenterology
PROC: 0DJ08ZZ Inspection of Upper Intestinal Tract, Via Natural or Artificial Opening Endoscopic (ICD-10-PCS; CPT 43235; principal; 2024-10-06 12:25)
DX: K29.50 Unspecified chronic gastritis without bleeding (principal); I11.0 Hypertensive heart disease with heart failure; I50.32 Chronic diastolic (congestive) heart failure; K44.9 Diaphragmatic hernia without obstruction or gangrene; K31.89 Other diseases of stomach and duodenum; K30 Functional dyspepsia; I25.10 Atherosclerotic heart disease of native coronary artery without angina pectoris; E03.9 Hypothyroidism, unspecified; E78.00 Pure hypercholesterolemia, unspecified; R63.4 Abnormal weight loss; Z68.1 Body mass index [BMI] 19.9 or less, adult; Z79.82 Long term (current) use of aspirin; Z79.890 Hormone replacement therapy; Z79.899 Other long term (current) drug therapy
CPT/HCPCS: 44361; 88305; 88342; J2405

== ENCOUNTER → 2024-12-25 | Outpatient (CLI) | payer MEDICARE, BC, SELFPAY ==
--- OUTSIDE RECORDS SUMMARY | 2024-08-26 10:17 | XMS RPT_ITS ---
Author Name Auto Generated Organization OH[facility] Care Team Providers Care Debt Collection Specialist Name Role Phone PRANEETH CHILDS Primary Care Unavailable CARLOS ENRIQUE MOMIN DO Attending Unavailable PRANEETH CHILDS DO Primary Care Unavailable PRANEETH CHILDS DO Primary Care Unavailable CARLOS ENRIQUE MOMIN DO Attending Unavailable PROBLEMS DATE TYPE CONDITION / CODE ATTENDING STATUS [facility] 08/26/2024 Admitting Diagnosis Epigastric pain / R10.13(ICD-10) CARLOS ENRIQUE MOMIN DO Active [facility] PROCEDURES No Procedure Records Found RESULTS HPYLAG Collected: 5 10:19 AM Status: F Source: [facility] TYPE CODE TESTS RESULT OUT OF RANGE REFERENCE UNITS LAB 476528([facility]) H pylori Stool Ag EIA Negative Negative Result Comment: Performed At : [facility] [address] [id number] Jaxson Shaffer PhD Ph:[phone] Performed By: #### [id number] ## ## [address] [address] [facility] Collected: 5 12:42 PM Status: F Source: [facility] TYPE CODE TESTS RESULT OUT OF RANGE REFERENCE UNITS LAB 466505([facility]) Deam Gliad IgA Abs 11 0-19 units Result Comment: Negative 0 - 19 Weak Positive 20 - 30 Moderate to Strong Positive >30 LAB 272874(LOINC) Deam Gliad IgG Abs 2 0-19 units Result Comment: Negative 0 - 19 Weak Positive 20 - 30 Moderate to Strong Positive >30 LAB 566312(LOINC) tTG IgA <2 0-3 units/ml Result Comment: Negative 0 - 3 Weak Positive 4 - 10 Positive >10 Tissue Transglutaminase (tTG) has been identified as the endomysial antigen. Studies have demonstr- ated that endomysial IgA antibodies have over 99% specificity for gluten sensitive enteropathy. LAB 713885(LOINC) tTG IgG 4 0-5 units/ml Result Comment: Negative 0 - 5 Weak Positive 6 - 9 Positive >9 LAB 247497(LOINC) Endomysial IgA Ab Negative Negative LAB 111199(LOINC) IgA 382 64-422 mg/dL Result Comment: Performed At : [facility] [address] [id number] Jaxson Shaffer PhD Ph:[phone] Performed By: #### [id number] ## ## [place] [address] PROGRESS Observed: 05/25/2024 8:07 PM Status: COMPLETED Source: [facility] HNO ID: [id number] Author: ALESSIA MARS APRN.[facility] Service: ? Author Type: Nurse Practitioner Type: Progress Notes Filed: 05/25/2024 20:15 Note Text: CC: Patient presents with: Cough: Chest congestion, productive cough x5 days, upset stomach with diarrhea on Wednesday HPI: Nikki Finn is a 88 year old female who presents to the office with complaint of chest congestion, head congestion, and cough, productive for 5 days. Symptoms are staying the same. Associated symptoms includes nasal congestion and cough. Denies wheezing, dyspnea, fatigue, nausea, vomiting , and diarrhea. Treatments tried include nothing so far. with no relief of symptoms. Sick contacts: unknown. History of asthma, frequent episodes of bronchitis, chronic bronchitis, bronchiectasis or COPD: No Smoker: No Seasonal/environmental allergies: No The ROS is otherwise negative. The patient's pmh, medications, allergies, and past visits are reviewed. PHYSICAL EXAM: BP 165/78 Pulse 72 Temp 37.3 ?C (99.2 ?F) Resp 18 Wt 46.5 kg (102 lb 8.2 oz) SpO2 95% General appearance: alert, cooperative, pleasant, in no acute distress Head: Normocephalic Eyes: EOM's intact, conjunctiva pink and moist, no icterus, sclera white, non-injected Ears: Right ear: External ear/canal- Normal, TM - clear with good landmarks. Left ear: External ear/canal- Normal, TM - clear with good landmarks Oropharynx:moist without lesions, No erythema, exudates or tonsillar hypertrophy. Heart: Negative. RRR without obvious murmur, gallop, or rubs. No ectopy. Lungs: clear to auscultation, without rales or wheeze, good air exchange PAST MEDICAL HISTORY Diagnosis Date Abdominal pain GERD (gastroesophageal reflux disease) HTN (hypertension) Hypothyroid PAST SURGICAL HISTORY Procedure Laterality Date HERNIA REPAIR HX bilateral PAST SURGICAL HISTORY OF repair of crushed right heel ALLERGIES Dexilant [Dexlansoprazole], Sulfa (Sulfonamide Antibiotics), and Famotidine MEDICATIONS amoxicillin (AMOXIL) 500 mg capsule TAKE 4 CAPS BY MOUTH ONE HOUR PRIOR TO YOUR DENTAL PROCEDURE aspirin (VAZALORE) 81 mg cap Take 1 capsule by mouth every 24 hours. atorvastatin (LIPITOR) 40 mg tablet Take 40 mg by mouth once daily. levothyroxine (SYNTHROID) 25 mcg tablet TAKE 1 TABLET BY MOUTH ON WEDNESDAY, WEDNESDAY, AND WEDNESDAY spironolactone (ALDACTONE) 25 mg tablet Take 25 mg by mouth once daily. traMADol (ULTRAM) 50 mg tablet Take 50 mg by mouth every 6 hours as needed. nitroglycerin sublingual (NITROQUICK) 0.4 mg SL tablet 0.4 mg. vit C,N-Wn-qdpxa-lutein-zeaxan (PRESERVISION AREDS-2) 250-90-40-1 mg Take 1 capsule by mouth two times a day with meals. atenolol (TENORMIN) 25 mg tablet Take 25 mg by mouth once daily. CALCIUM CARBONATE/VITAMIN D3 (CALCIUM + D ORAL) Take by mouth once daily. amLODIPine (NORVASC) 2.5 mg tablet Take 1 tablet by mouth once daily. doxycycline (VIBRA-TABS) 100 mg tablet Take 1 tablet by mouth two times a day for 7 days. Cholecalciferol, Vitamin D3, 1,000 unit tab Take 1,000 Units by mouth once daily. (Patient not taking: Reported on 05/25/2024) famotidine 40 mg tablet Take 1 tablet by mouth once daily. (Patient not taking: Reported on 05/25/2024) multivitamin tablet Take 1 tablet by mouth once daily. (Patient not taking: Reported on 05/25/2024) No family history on file. Social History Tobacco Use Smoking status: Never Substance Use Topics Alcohol use: No ASSESSMENT/PLAN: 1. Respiratory infection - ICD9: 519.8, ICD10: J98.8 - DOXYCYCLINE HYCLATE 100 MG TABLET Prescription instructions reviewed with patient as applicable. Potential red flag symptoms discussed with the patient. Reviewed appropriate action plan to take if red flag symptoms occur. Patient agreeable to treatment plan. Alessia aMrs APRN.[employer]UMENTS ASSEMBLER CNOV Observed: 05/25/2024 7:45 PM Status: COMPLETED Source: [facility] Office Visit ([facility]) NIKKI FINN ([id number]) 1935 F Date Time Provider Department [facility], we recorded the following information about you: Temperature Pulse Respiration Blood pressure 99.2 degrees 72/minute 18/minute 165/78 Weight 46.5 kg Alessia Mars APRN.CNP 05/25/2024 8:15 PM Signed CC: Patient presents with: Cough: Chest congestion, productive cough x5 days, upset stomach with diarrhea on Wednesday HPI: Nikki Finn is a 88 year old female who presents to the office with complaint of chest congestion, head congestion, and cough, productive for 5 days. Symptoms are staying the same. Associated symptoms includes nasal congestion and cough. Denies wheezing, dyspnea, fatigue, nausea, vomiting , and diarrhea. Treatments tried include nothing so far. with no relief of symptoms. Sick contacts: unknown. History of asthma, frequent episodes of bronchitis, chronic bronchitis, bronchiectasis or COPD: No Smoker: No Seasonal/environmental allergies: No The ROS is otherwise negative. The patient's pmh, medications, allergies, and past visits are reviewed. PHYSICAL EXAM: BP 165/78 Pulse 72 Temp 37.3 ?C (99.2 ?F) Resp 18 Wt 46.5 kg (102 lb 8.2 oz) SpO2 95% General appearance: alert, cooperative, pleasant, in no acute distress Head: Normocephalic Eyes: EOM's intact, conjunctiva pink and moist, no icterus, sclera white, non-injected Ears: Right ear: External ear/canal- Normal, TM - clear with good landmarks. Left ear: External ear/canal- Normal, TM - clear with good landmarks Oropharynx:moist without lesions, No erythema, exudates or tonsillar hypertrophy. Heart: Negative. RRR without obvious murmur, gallop, or rubs. No ectopy. Lungs: clear to auscultation, without rales or wheeze, good air exchange PAST MEDICAL HISTORY Diagnosis Date Abdominal pain GERD (gastroesophageal reflux disease) HTN (hypertension) Hypothyroid PAST SURGICAL HISTORY Procedure Laterality Date HERNIA REPAIR HX bilateral PAST SURGICAL HISTORY OF repair of crushed right heel ALLERGIES Dexilant [Dexlansoprazole], Sulfa (Sulfonamide Antibiotics), and Famotidine MEDICATIONS amoxicillin (AMOXIL) 500 mg capsule TAKE 4 CAPS BY MOUTH ONE HOUR PRIOR TO YOUR DENTAL PROCEDURE aspirin (VAZALORE) 81 mg cap Take 1 capsule by mouth every 24 hours. atorvastatin (LIPITOR) 40 mg tablet Take 40 mg by mouth once daily. levothyroxine (SYNTHROID) 25 mcg tablet TAKE 1 TABLET BY MOUTH ON WEDNESDAY, WEDNESDAY, AND WEDNESDAY spironolactone (ALDACTONE) 25 mg tablet Take 25 mg by mouth once daily. traMADol (ULTRAM) 50 mg tablet Take 50 mg by mouth every 6 hours as needed. nitroglycerin sublingual (NITROQUICK) 0.4 mg SL tablet 0.4 mg. vit C,I-Vg-fzpoh-lutein-zeaxan (PRESERVISION AREDS-2) 250-90-40-1 mg Take 1 capsule by mouth two times a day with meals. atenolol (TENORMIN) 25 mg tablet Take 25 mg by mouth once daily. CALCIUM CARBONATE/VITAMIN D3 (CALCIUM + D ORAL) Take by mouth once daily. amLODIPine (NORVASC) 2.5 mg tablet Take 1 tablet by mouth once daily. doxycycline (VIBRA-TABS) 100 mg tablet Take 1 tablet by mouth two times a day for 7 days. Cholecalciferol, Vitamin D3, 1,000 unit tab Take 1,000 Units by mouth once daily. (Patient not taking: Reported on 05/25/2024) famotidine 40 mg tablet Take 1 tablet by mouth once daily. (Patient not taking: Reported on 05/25/2024) multivitamin tablet Take 1 tablet by mouth once daily. (Patient not taking: Reported on 05/25/2024) No family history on file. Social History Tobacco Use Smoking status: Never Substance Use Topics Alcohol use: No ASSESSMENT/PLAN: 1. Respiratory infection - ICD9: 519.8, ICD10: J98.8 - DOXYCYCLINE HYCLATE 100 MG TABLET Prescription instructions reviewed with patient as applicable. Potential red flag symptoms discussed with the patient. Reviewed appropriate action plan to take if red flag symptoms occur. Patient agreeable to treatment plan. Alessia Mars APRN.MUSICAL INSTRUMENTS ASSEMBLER Allergies As of Date: 05/25/2024 Noted Allergy Reaction DEXILANT (DEXLANSOPRAZOLE) 10/24/2013 2 - Rash SULFA (SULFONAMIDE ANTIBIOTICS) 10/24/2013 10 - Anaphylaxis FAMOTIDINE 02/11/2021 12 - Shortness of Breath Date Reviewed: 05/25/2024 Reviewed by: Danette Dozier MA - Fully Assessed Reason for Visit: Cough [28] Cmt: Chest congestion, productive cough x5 days, upset stomach with diarrhea on Wednesday Primary Visit Diagnosis:Respiratory infection [J98.8] Order(s):doxycycline (VIBRA-TABS) 100 mg tabletTake 1 tablet by mouth two times a day for 7 days.Disp: 14 tabletRfl: 0 Prescriptions as of 05/25/2024 - amoxicillin (AMOXIL) 500 mg capsule TAKE 4 CAPS BY MOUTH ONE HOUR PRIOR TO YOUR DENTAL PROCEDURE - aspirin (VAZALORE) 81 mg cap Take 1 capsule by mouth every 24 hours. - atorvastatin (LIPITOR) 40 mg tablet Take 40 mg by mouth once daily. - levothyroxine (SYNTHROID) 25 mcg tablet TAKE 1 TABLET BY MOUTH ON WEDNESDAY, WEDNESDAY, AND WEDNESDAY - spironolactone (ALDACTONE) 25 mg tablet Take 25 mg by mouth once daily. - traMADol (ULTRAM) 50 mg tablet Take 50 mg by mouth every 6 hours as needed. - nitroglycerin sublingual (NITROQUICK) 0.4 mg SL tablet 0.4 mg. - vit C,D-Dz-faqut-lutein-zeaxan (PRESERVISION AREDS-2) 250-90-40-1 mg Take 1 capsule by mouth two times a day with meals. - doxycycline (VIBRA-TABS) 100 mg tablet Take 1 tablet by mouth two times a day for 7 days. - atenolol (TENORMIN) 25 mg tablet Take 25 mg by mouth once daily. - CALCIUM CARBONATE/VITAMIN D3 (CALCIUM + D ORAL) Take by mouth once daily. - Cholecalciferol, Vitamin D3, 1,000 unit tab Take 1,000 Units by mouth once daily. - amLODIPine (NORVASC) 2.5 mg tablet Take 1 tablet by mouth once daily. - famotidine 40 mg tablet Take 1 tablet by mouth once daily. - multivitamin tablet Take 1 tablet by mouth once daily. Problem List As Of Date 05/25/2024 Noted Resolved Abdominal pain [R10.9] Prescriptions ordered this encounter Disp Refills Start End DOXYCYCLINE HYCLATE 100 MG TABLET 14 t* 0 05/25/2024 06/01/2024 Route: ORAL Sig: Take 1 tablet by mouth two times a day for 7 days. Encounter Status:Closed by ALESSIA MARS on 05/25/24 ALLERGIES DATE TYPE / CODE NAME / CODE REACTION SEVERITY SOURCE 10/24/2013 DRUG INGREDI/47693 1003(SNOMED CT) DEXLANSOPRAZOLE RASH [facility] 10/24/2013 Drug Class/2898068 03(SNOMED CT) SULFA (SULFONAMIDE ANTIBIOTICS) ANAPHYLAXIS [facility] ENCOUNTERS ADMIT/DISCHARGE ACCOUNT NUMBER ADMITTING ENCOUNTER CLASS LOCATION SOURCE 08/26/2024/ 5 [id number] [facility] 08/25/2024/ 5 [id number] [facility] 05/25/2024/02/27 [id number] [facility] PAYERS ENCOUNTER GUARANTOR PAYER SUBSCRIBER SOURCE 08/26/2024 NIKKI Mijares SHAHLAB: [place] [address]Fdn: (HP) Primary Insurance:MEDICARE PART B INSCOPolicy Number: [id number] Date:0921-43-40Xmuc Name:[facility] [address] [address]PE: NIKKI Dyllan GALEB: [id number] [place] [address]Gql: (HP) (WP) [facility] 08/26/2024 Secondary Insurance:[employer] BLUE CROSS INSCOPolicy Number: [id number] Date:0343-89-47Ocsy Name:[facility] [place]HA [id number], [place] [address]ZP: NIKKI Dyllan FINNDOB: [id number] [place] [address]Cvp: (HP) (WP) [facility] 08/25/2024 NIKKI Dyllan GALEB: [place] [address]Ntf: (HP) Primary Insurance:MEDICARE PART B INSCOPolicy Number: [id number] Date:4208-95-57Lbxd Name:[facility] [address] [address]IR: NIKKI FINNDOB: [id number] [place] [address]Yli: (HP) (WP) [facility] 08/25/2024 Secondary Insurance:[employer]HE[employer] BLUE CROSS INSCOPolicy Number: [id number] Date:2642-92-42Zuzc Name:KAYLA VIEIRA [id number], [place] [address]KT: NIKKI WILEY: [id number] [place] [address]Dos: (HP) (WP) [facility] 05/25/2024 Primary Insurance:MEDICARE A AND BPolicy Number: [id number] Date:3384-01-54Yrkk Name:Macho WILEY: [id number] [place] [address] [facility] 05/25/2024 Secondary Insurance:BLUE CARD TRADITIONAL OOSPolicy Number: [id number] Date:2401-55-11Ille Name:Donny WILEY: [id number] [place], [place] [id number] [place] [address]
[2024-12-25 10:20] LABS: Hematocrit 36.3 % (37-47); Hemoglobin 11.9 g/dL (12.0-15.0); Mean Corp Hgb Conc 32.8 g/dL (32-36); Mean Corpuscular Volume 95.3 fL (81-99); Mean Platelet Vol. 9.7 fl (6.2-12.0); Platelet Count 218 K/mm3 (150-450); RBC Distribution Width CV 13.7 % (11.6-14.6); RBC Distribution Width SD 48.5 fl (35.1-43.9); Red Blood Count 3.81 M/mm3 (4.2-5.4); White Blood Count 7.5 K/mm3 (4.4-11.0)
[2024-12-25 11:19] LABS: Anion Gap 9 (5-15); BUN 18 mg/dL (4-19); BUN/Creat Ratio 17.8 RATIO (10-20); Calcium,Total 9.4 mg/dL (7.6-11.0); Carbon Dioxide 25.5 mmol/L (21.0-32.0); Chloride 96 mmol/L (98-108); Cholesterol 95 mg/dL (<=200); Glucose 91 mg/dL (70-99); Low Density Lipoprotein Calc. 30 mg/dL; Potassium 4.7 mmol/L (3.3-5.1); Triglycerides 55 mg/dL; Very Low Density Lipoprotein 11 mg/dL (5-40); cholesterol:hdl ratio screen 1.75
== END | disposition home or self-care (01) ==
LOC: LAB 09:03
PROVIDERS: PCP Student in an Organized Health Care Education/Training Program; Referring Provider Student in an Organized Health Care Education/Training Program; Visit Provider Student in an Organized Health Care Education/Training Program
DX: N18.30 Chronic kidney disease, stage 3 unspecified (principal); M80.08XA Age-related osteoporosis with current pathological fracture, vertebra(e), initial encounter for fracture; X58.XXXA Exposure to other specified factors, initial encounter; E03.9 Hypothyroidism, unspecified; E78.00 Pure hypercholesterolemia, unspecified; K29.50 Unspecified chronic gastritis without bleeding
CPT/HCPCS: 36415; 80048; 80061; 84439; 84443; 85027

== ENCOUNTER → 2025-02-16 | Outpatient (CLI) | payer MEDICARE, BC, SELFPAY ==
[2025-02-16 12:29] LABS: Hematocrit 35.5 % (37-47); Hemoglobin 12.0 g/dL (12.0-15.0); Immature Granulocytes Count 0.030 X10^3/uL (0.0-0.0); Mean Corp Hgb Conc 33.8 g/dL (32-36); Mean Corpuscular Volume 93.4 fL (81-99); Mean Platelet Vol. 8.9 fl (6.2-12.0); NRBC Flagged by Analyzer 0 % (0-5); Platelet Count 218 K/mm3 (150-450); RBC Distribution Width CV 13.9 % (11.6-14.6); RBC Distribution Width SD 47.7 fl (35.1-43.9); Red Blood Count 3.80 M/mm3 (4.2-5.4); White Blood Count 8.4 K/mm3 (4.4-11.0)
[2025-02-16 13:01] LABS: AST(SGOT) 42 U/L (<=31); Alanine Aminotransfer ALT/SGPT 25 U/L (<=34); Albumin, Serum 4.0 g/dL (3.4-4.8); Alkaline Phosphatase 96 U/L (35-104); Anion Gap 7 (5-15); BUN 16 mg/dL (4-19); BUN/Creat Ratio 15.8 RATIO (10-20); Calcium,Total 9.0 mg/dL (7.6-11.0); Carbon Dioxide 25.4 mmol/L (21.0-32.0); Chloride 96 mmol/L (98-108); Globulin 2.9 g/dL (2.2-4.2); Glucose 122 mg/dL (70-99); Potassium 4.9 mmol/L (3.3-5.1); Pro- Brain NATRIURETIC PEPTIDE 5284 pg/mL (<=1800)
== END | disposition home or self-care (01) ==
LOC: LAB 12:09
PROVIDERS: PCP Student in an Organized Health Care Education/Training Program; Referring Provider Internal Medicine Cardiovascular Disease; Visit Provider Internal Medicine Cardiovascular Disease
DX: R06.09 Other forms of dyspnea (principal)
CPT/HCPCS: 36415; 80053; 83880; 85025

== ENCOUNTER → 2025-02-26 | Outpatient (CLI) | payer MEDICARE, BC, SELFPAY ==
[2025-02-26 11:00] LABS: Anion Gap 10 (5-15); BUN 23 mg/dL (4-19); BUN/Creat Ratio 20.7 RATIO (10-20); Calcium,Total 8.9 mg/dL (7.6-11.0); Carbon Dioxide 25.6 mmol/L (21.0-32.0); Chloride 90 mmol/L (98-108); Glucose 94 mg/dL (70-99); Potassium 4.3 mmol/L (3.3-5.1)
== END | disposition home or self-care (01) ==
LOC: LAB 09:32
PROVIDERS: PCP Student in an Organized Health Care Education/Training Program; Referring Provider Nurse Practitioner Family; Visit Provider Nurse Practitioner Family
DX: R06.09 Other forms of dyspnea (principal); N18.32 Chronic kidney disease, stage 3b; I12.9 Hypertensive chronic kidney disease with stage 1 through stage 4 chronic kidney disease, or unspecified chronic kidney disease; Z95.2 Presence of prosthetic heart valve
CPT/HCPCS: 36415; 80048

== ENCOUNTER → 2025-03-12 | Outpatient (CLI) | payer MEDICARE, BC, SELFPAY ==
--- NOTE | 2025-03-12 13:08 | ECHOD_ITS ---
Reason For Study Reason For Study: DYSPNEA/SOB Procedure This was a 2D Doppler, Color Flow transthoracic echocardiogram. Exam performed in department. Left Ventricle Normal LV size. The left ventricular ejection fraction is 50 %. There is borderline global hypokinesis of the left ventricle. Right Ventricle Normal RV size. Normal systolic function. Mitral Valve There is moderate mitral annular calcification. Mild-Moderate (1-2+) eccentric mitral valve insufficiency. Tricuspid Valve Normal tricuspid valve. Mild (1+) tricuspid valve insufficiency. Pulmonary artery systolic pressure is 30 mmHg. 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 Pulmonic Valve Normal pulmonic valve. Great Vessels Normal aortic root. Pericardium/Pleural No pericardial effusion. MMode/2D Measurements & Calculations LVIDd: 4.2 cm IVSd: 0.86 cm LVOT diam: 1.9 cm LVIDs: 3.6 cm LVPWd: 0.98 cm LVOT area: 2.7 cm2 RVDd: 3.5 cm FS: 15.9 % Ao root diam: 3.2 cm LAV(MOD-bp): 65.0 ml LVAd ap4: 22.6 cm2 LAV(MOD-bp) Indexed: 49.4 ml/m2 LVLd ap4: 6.3 cm LAV(MOD-sp2): 67.0 ml EDV(MOD-sp4): 62.9 ml LAV(MOD-sp4): 63.3 ml EDV(sp4-el): 68.4 ml LVAs ap4: 14.1 cm2 LVLs ap4: 5.0 cm ESV(MOD-sp4): 30.1 ml ESV(sp4-el): 33.5 ml EF(MOD-sp4): 52.2 % EF(sp4-el): 51.1 % SV(MOD-sp4): 32.8 ml LVAd ap2: 23.7 cm2 EDV(MOD-bp): 64.2 ml LVLd ap2: 7.3 cm ESV(MOD-bp): 30.6 ml SI(MOD-sp4): 24.9 ml/m2 EDV(MOD-sp2): 59.3 ml EF(MOD-bp): 52.3 % EDV(sp2-el): 65.7 ml LVAs ap2: 14.8 cm2 LVLs ap2: 6.4 cm ESV(MOD-sp2): 27.0 ml ESV(sp2-el): 29.0 ml EF(MOD-sp2): 54.4 % SV(MOD-sp2): 32.3 ml SV(sp4-el): 35.0 ml LA A4 area: 20.6 cm2 SI(MOD-sp2): 24.5 ml/m2 LA dimension(2D): 3.2 cm TAPSE: 1.9 cm RA A4 area: 13.1 cm2 Time Measurements MV dec time: 0.34 sec Doppler Measurements & Calculations MV E max mookie: 93.8 cm/sec Lat Peak E' Mookie: 9.7 cm/sec Med Peak E' Mookie: 3.2 cm/sec MV A max mookie: 155.7 cm/sec E/E' lat: 9.6 E/E' med: 29.6 MV E/A: 0.60 MV V2 max: 175.8 cm/sec MV dec slope: 298.7 cm/sec2 Ao V2 max: 175.7 cm/sec MV max P.4 mmHg Ao max P.3 mmHg MV V2 mean: 89.4 cm/sec Ao V2 mean: 125.4 cm/sec MV mean P.0 mmHg Ao mean P.0 mmHg MV V2 VTI: 38.5 cm Ao V2 VTI: 42.5 cm MVA(VTI): 2.5 cm2 AV (velocity ratio): 0.82 CORNELL(I,D): 2.3 cm2 CORNELL(V,D): 2.3 cm2 LV V1 max: 145.7 cm/sec SV(LVOT): 95.8 ml PA V2 max: 82.4 cm/sec LV V1 max P.5 mmHg LV V1 mean P.9 mmHg LV V1 mean: 105.6 cm/sec LV V1 VTI: 35.0 cm TR max mookie: 261.2 cm/sec TR max P.3 mmHg ECHO/Echo Complete Interpretation Summary The left ventricular ejection fraction is 50 %. Normal LV size. There is borderline global hypokinesis of the left ventricle. Bioprosthetic aortic valve. The position of the AVR is more caudad than usual Mild-Moderate (1-2+) eccentric mitral valve insufficiency. Ordering Physician: Nelson Dsouza Referring Physician: Mariela Yeboah Performed By: Quique Rodrigues RDCS
== END | disposition home or self-care (01) ==
LOC: CVS 13:07
PROVIDERS: PCP Student in an Organized Health Care Education/Training Program; Referring Provider Internal Medicine Cardiovascular Disease; Visit Provider Internal Medicine Cardiovascular Disease
DX: R06.09 Other forms of dyspnea (principal)
CPT/HCPCS: 93306

== ENCOUNTER → 2025-03-26 | Outpatient (CLI) | payer MEDICARE, BC, SELFPAY ==
--- NOTE | 2025-03-26 15:11 | RAD_ITS ---
PROCEDURE: CHEST PA AND LATERAL 03/26/2025 REASON FOR EXAM: SOB TECHNIQUE: Procedure Code: RADCXR Modality: DX Procedure: CHEST PA AND LATERAL FINDINGS: There are chronic appearing bilateral interstitial lung markings. There are no focal opacities. There are no pleural effusions. There are no pneumothoraces. The upper abdomen is unremarkable. The heart size is normal. The osseous structures are intact. There is chronic deformities of the thoracic spine. RAD/Chest PA and Lateral IMPRESSION: No acute cardiopulmonary findings. Chronic appearing bilateral interstitial lung markings. Reading Location: [id number]
[2025-03-26 16:37] LABS: Hematocrit 32.1 % (37-47); Hemoglobin 10.6 g/dL (12.0-15.0); Immature Granulocytes Count 0.110 X10^3/uL (0.0-0.0); Mean Corp Hgb Conc 33.0 g/dL (32-36); Mean Corpuscular Volume 93.9 fL (81-99); Mean Platelet Vol. 10.0 fl (6.2-12.0); NRBC Flagged by Analyzer 0 % (0-5); Platelet Count 208 K/mm3 (150-450); RBC Distribution Width CV 14.7 % (11.6-14.6); RBC Distribution Width SD 50.8 fl (35.1-43.9); Red Blood Count 3.42 M/mm3 (4.2-5.4); White Blood Count 7.5 K/mm3 (4.4-11.0)
[2025-03-26 17:13] LABS: Anion Gap 8 (7-18); BUN 21 mg/dL (4-19); BUN/Creat Ratio 20.3 RATIO (10-20); Calcium,Total 8.6 mg/dL (7.6-11.0); Carbon Dioxide 27.7 mmol/L (20.0-29.0); Chloride 98 mmol/L (96-106); Glucose 91 mg/dL (70-99); Potassium 4.3 mmol/L (3.5-5.1); Pro- Brain NATRIURETIC PEPTIDE 8101 pg/mL (<=1800)
== END | disposition home or self-care (01) ==
LOC: LAB 14:46
PROVIDERS: PCP Student in an Organized Health Care Education/Training Program; Referring Provider Nurse Practitioner Family; Visit Provider Nurse Practitioner Family
DX: I12.9 Hypertensive chronic kidney disease with stage 1 through stage 4 chronic kidney disease, or unspecified chronic kidney disease (principal); N18.32 Chronic kidney disease, stage 3b; I44.7 Left bundle-branch block, unspecified; R06.09 Other forms of dyspnea; Z95.2 Presence of prosthetic heart valve
CPT/HCPCS: 36415; 71046; 80048; 83880; 85025